=== PATIENT | female | born 1970 | race Two or more races ===

== ENCOUNTER 2017-09-03 07:55 | Emergency (ER) | payer MEDICAID ==
[~2017-09-03] VITALS: Ht 149.9 cm; Wt 59.0 kg
[~2017-09-03 07:55] MED LIST: ALBU8HFA PO; BUPR150T14 PO; DIVA500T9 PO; ESTR0.6261 PO; HYDR-3686 PO; ROPI0.5T PO
[2017-09-03 08:15] VITALS: BP 119/85
[2017-09-03] MEDS ORDERED: ipratropium/albuterol 3ml nebule NEB ONE (08:40)
[2017-09-03] MEDS ORDERED: methylPREDNISolone sod succ 125mg/2ml vial IM ONE (08:45)
[2017-09-03] MEDS ORDERED: acetaminophen 325mg tablet PO ONE (09:20)
[2017-09-03] MEDS ORDERED: LEVO500T2 PO (09:57)
== END 2017-09-03 10:05 | disposition home or self-care (01) ==
LOC: ER 07:56
DX: J18.1 Lobar pneumonia, unspecified organism (principal); J45.909 Unspecified asthma, uncomplicated; Z98.890 Other specified postprocedural states; Z88.8 Allergy status to other drugs, medicaments and biological substances; Z79.899 Other long term (current) drug therapy; Z59.0 Homelessness
CPT/HCPCS: 71045; 94640; 94760; 96372; 99283; A6449; J2930

== ENCOUNTER 2017-09-05 12:15 | Emergency (ER) | payer MEDICAID ==
[~2017-09-05] VITALS: Ht 149.9 cm; Wt 54.0 kg
[~2017-09-05 12:15] MED LIST changes: +LEVO500T2 PO
[2017-09-05 12:25] VITALS: BP 100/60
== END 2017-09-05 13:25 | disposition home or self-care (01) ==
LOC: ER 12:16
DX: R05 Cough (principal); R09.89 Other specified symptoms and signs involving the circulatory and respiratory systems; R06.2 Wheezing; J45.909 Unspecified asthma, uncomplicated; Z98.890 Other specified postprocedural states; Z88.8 Allergy status to other drugs, medicaments and biological substances; Z79.899 Other long term (current) drug therapy; Z59.0 Homelessness
CPT/HCPCS: 99281

== ENCOUNTER 2018-05-05 12:29 | Emergency (ER) | payer MEDICAID ==
[~2018-05-05] VITALS: Ht 149.9 cm; Wt 53.9 kg
[~2018-05-05 12:29] MED LIST changes: -LEVO500T2 PO
[2018-05-05 12:41] VITALS: BP 115/62
[2018-05-05 13:03] LABS: BASOPHILS % (AUTO) 0.4 % (0-1); EOSINOPHILS # (AUTO) 0.8 X10'3 (0-0.9); EOSINOPHILS % (AUTO) 8.5 % (0-6); HEMATOCRIT 38.4 % (35.0-45.0); LYMPHOCYTES # (AUTO) 3.2 X10'3 (1.1-4.8); LYMPHOCYTES % (AUTO) 35.5 % (21-51); MEAN CORPUSCULAR HEMOGLOBIN 20.8 PG (27.0-31.0); MEAN CORPUSCULAR HGB CONC 31.2 g/dL (33.0-36.5); MEAN CORPUSCULAR VOLUME 66.8 FL (78-98); MONOCYTES # (AUTO) 0.5 X10'3 (0-0.9); MONOCYTES % (AUTO) 5.7 % (2-12); NEUTROPHILS # (AUTO) 4.5 X10'3 (1.8-7.7); NEUTROPHILS % (AUTO) 49.9 % (42-75); PLATELET COUNT 386 X10'3 (140-440); RED BLOOD COUNT 5.76 X10'6 (4.20-5.60); RED CELL DISTRIBUTION WIDTH 15.9 % (11.5-14.5); WHITE BLOOD COUNT 8.9 X10'3 (4.5-11.0)
[2018-05-05 13:16] LABS: ALANINE AMINOTRANSFERASE 35 U/L (12-78); ALBUMIN 3.8 G/DL (3.4-5.0); ALBUMIN/GLOBULIN RATIO 0.9 (1.1-1.5); ALKALINE PHOSPHATASE 70 IU/L (46-116); ANION GAP 5 (8-16); ASPARTATE AMINO TRANSFERASE 20 U/L (10-37); BILIRUBIN,TOTAL 0.4 MG/DL (0.1-1.0); BLOOD UREA NITROGEN 23 MG/DL (7-18); BUN/CREATININE RATIO 33.3 (6.6-38.0); CALCIUM 9.7 MG/DL (8.5-10.1); CHLORIDE 107 MMOL/L (99-107); CREATININE 0.69 MG/DL (0.40-0.90); GLUCOSE 118 MG/DL (70-104); PARTIAL THROMBOPLASTIN TIME 31 SECONDS (22-32); POTASSIUM 4.7 MMOL/L (3.5-5.1); SODIUM 139 MMOL/L (135-145); TOTAL CARBON DIOXIDE 26.6 MMOL/L (24-32); TOTAL PROTEIN 8.2 G/DL (6.4-8.2); eGFR > 90 ML/MIN
[2018-05-05 13:28] LABS: PLATELET ESTIMATE NORMAL
[2018-05-05 13:29] LABS: LARGE PLATELETS FEW; MICROCYTOSIS 2+
[2018-05-05] MEDS ORDERED: ketorolac trometh inj. 60 MG/2 ML VIAL IM ONE (15:00)
[2018-05-05] MEDS ORDERED: HYDROcodone/acetaminophen 5mg/325mg tablet PO ONE (15:05)
== END 2018-05-05 17:01 | disposition home or self-care (01) ==
LOC: ER 12:30
DX: R07.89 Other chest pain (principal); J45.909 Unspecified asthma, uncomplicated; Z98.890 Other specified postprocedural states; Z79.899 Other long term (current) drug therapy; Z88.8 Allergy status to other drugs, medicaments and biological substances; Z59.0 Homelessness
CPT/HCPCS: 36415; 71045; 80053; 84484; 85025; 85610; 85730; 93005; 99284

== ENCOUNTER 2018-10-22 22:02 | Emergency (ER) | payer MEDICAID ==
[~2018-10-22] VITALS: Ht 149.9 cm; Wt 55.5 kg
[2018-10-22 22:25] VITALS: BP 118/66
[2018-10-23] MEDS ORDERED: CLIN300C54 PO (01:04)
== END 2018-10-23 01:11 | disposition home or self-care (01) ==
LOC: ER 22:03
DX: N76.89 Other specified inflammation of vagina and vulva (principal); J45.909 Unspecified asthma, uncomplicated; F17.200 Nicotine dependence, unspecified, uncomplicated; F41.9 Anxiety disorder, unspecified; Z98.890 Other specified postprocedural states; Z59.0 Homelessness; Z88.8 Allergy status to other drugs, medicaments and biological substances; Z79.899 Other long term (current) drug therapy
CPT/HCPCS: 99283

== ENCOUNTER 2019-01-31 15:22 | Emergency (ER) | payer MEDICAID ==
[~2019-01-31] VITALS: Ht 149.9 cm; Wt 60.0 kg
[2019-01-31 15:36] VITALS: BP 114/76
== END 2019-01-31 16:17 | disposition home or self-care (01) ==
LOC: ER 15:22
DX: J02.9 Acute pharyngitis, unspecified (principal); J45.909 Unspecified asthma, uncomplicated; F41.9 Anxiety disorder, unspecified; Z98.890 Other specified postprocedural states; Z59.0 Homelessness; Z88.8 Allergy status to other drugs, medicaments and biological substances; Z79.899 Other long term (current) drug therapy
CPT/HCPCS: 99281